=== PATIENT | female | born 1940 | race Caucasian/White ===

== ENCOUNTER → 2018-01-07 | Outpatient (CLI) | payer MEDICARE ==
[~2018-01-07] MED LIST: ALBU8.5H IH; ASPI-1471 PO; AUG500 PO; CALC400T65 PO; CHOL10005 PO; CIP500 PO; ESTR1 PO; FAM20 PO; FISH OIL1 CAP PO; FLINTSTONE PO; IBU600 PO; LOR5/325 PO; PHENA200 PO; SIMV10TA96 PO; SIMV5TAB56 PO; VALS1TAB64 PO; [UNRECOGNIZED DRUG - CODE] PO
--- NOTE | 2018-01-08 10:41 | RADIOLOGY IMAGING REPORT ---
FACILITY: [facility] PATIENT NAME: YONAS VAN : [id number] MR: [id number] V: [id number] EXAM DATE: [id number] ORDERING PHYSICIAN: SHAKIRA LEÓN TECHNOLOGIST: Josefina Rosado PROCEDURE:BILATERAL DIGITAL SCREENING MAMMOGRAM WITH CAD ASSISTED INTERPRETATION & 3D TOMOSYNTHESIS COMPARISON:Prior mammograms 12/17/16, 07/11/15, 07/08/14, 07/13/13, 07/08/12. INDICATIONS:screening FINDINGS: Moderately heterogeneous fibroglandular tissue is seen throughout the breasts. The parenchymal pattern has remained stable allowing for difference in mammographic technique & patient positioning. There is no evidence of malignant appearing mass, malignant appearing calcifications or other secondary sign of malignancy in either breast. DIAGNOSTIC CATEGORY 1--NEGATIVE. RECOMMENDATIONS: ROUTINE MAMMOGRAM AND CLINICAL EVALUATION. IMPRESSION: BIRADS 1: Negative No significant abnormality is seen. Dictated by: Anastasia Martines M.D. on 01/07/2018 at 11:13 Transcribed by: KIAH on 01/07/2018 at 11:42 Approved by: Anastasia Martines M.D. on 01/08/2018 at 10:40 [facility]
== END ==
LOC: MAMO 00:52
PROVIDERS: ATTEND Family Medicine
DX: Z12.31 Encounter for screening mammogram for malignant neoplasm of breast (principal)
CPT/HCPCS: 77063; 77067

== ENCOUNTER → 2018-10-29 | Outpatient (CLI) | payer MEDICARE ==
[~2018-10-29] MED LIST changes: +GADOBENATE 529MG/1ML 15ML VIAL IVP ONE
--- NOTE | 2018-10-29 18:03 | RADIOLOGY IMAGING REPORT ---
FACILITY: [facility] PATIENT NAME: Crystal Cavanaugh : 1940 MR: [id number] V: [id number] EXAM DATE: ORDERING PHYSICIAN: CYNTHIA LINARES TECHNOLOGIST: [place]: [facility] [place] Patient: Afshan, Crystal : 1940 Visit/Account:[id number] Date of Sevice: 10/29/2018 MR BRAIN/BRAIN STEM W/ & W/O CON Comparisons: None. Additional pertinent history: Blurry vision with recent onset. TECHNIQUE: Multiplanar, multisequence brain MRI was performed with and without gadolinium contrast. CONTRAST: 15 ml of MultiHance. FINDINGS: Sagittal midline structures and craniocervical junction: Negative. Midline shift: None. Ventricles: Negative. Brain parenchyma: Diffusion weighted imaging: Negative. Gradient sequence: Negative. T2 weighted FLAIR images: Scattered foci of abnormal increased T2 signal within the periventricular and subcortical white matter, nonspecific but likely representing small vessel ischemic change on a chronic basis. Extra-axial spaces: Mild cerebral atrophy. Dural venous sinuses and major arterial flow voids: Negative. Intracranial enhancement: Negative.. Mastoid air cells and paranasal sinuses: Moderate mucosal thickening involving the right maxillary si nus. Surrounding soft tissues and orbits: Negative. Impression: 1. Age related changes as above. 2. No evidence of acute intracranial pathology. 3. Underlying paranasal sinus disease. Report Dictated By: Cynthia Galan MD at 10/29/2018 5:55 PM Report E-Signed By: Cynthia Galan MD at 10/29/2018 5:58 PM WSN:[email or web address]
== END ==
LOC: MRI 16:17
PROVIDERS: ATTEND Family Medicine
DX: G31.89 Other specified degenerative diseases of nervous system (principal)
CPT/HCPCS: 70553; A9577

== ENCOUNTER → 2018-11-19 | Outpatient (CLI) | payer MEDICARE ==
[~2018-11-19] MED LIST changes: -GADOBENATE 529MG/1ML 15ML VIAL IVP ONE
== END ==
LOC: US 00:51
PROVIDERS: ATTEND Family Medicine
DX: I34.0 Nonrheumatic mitral (valve) insufficiency (principal)
CPT/HCPCS: C8929; Q9957

== ENCOUNTER → 2018-12-01 | Outpatient (CLI) | payer MEDICARE ==
--- NOTE | 2018-12-01 16:23 | RADIOLOGY IMAGING REPORT ---
FACILITY: [facility] PATIENT NAME: Crystal Afshan : 1940 MR: [id number] V: [id number] EXAM DATE: ORDERING PHYSICIAN: TABITHA PABON TECHNOLOGIST: Location: [facility] [place] Patient: Afshan, Crystal : 1940 Visit/Account:[id number] Date of Sevice: 12/01/2018 CAROTID HISTORY: Essential hypertension, PFO, TIA COMPARISON: None. FINDINGS: Grayscale, duplex and color Doppler interrogation of the extracranial carotid and vertebral arteries was performed bilateral. On the right, peak systolic velocities within the common and internal carotid arteries are 90 and 72 cm/sec respectively. There is a small hard plaque in the distal right common carotid artery. Antegr wade flow within the common, internal and external carotid arteries as well as vertebral artery. ICA/C CA ratio 0.8. On the left, peak systolic velocities within the common and internal carotid arteries are 97 and 80 c m/sec respectively. No significant plaque identified. Antegrade flow within the common, internal an d external carotid arteries as well as vertebral artery. ICA/CCA ratio 0.8. IMPRESSION: No hemodynamically significant lesions identified Velocity criteria are extrapolated from diameter data as defined by the Society of Radiologists in Ul trasound Consensus Conference Radiology 2003; 229;340-346 Report Dictated By: Anastasia Martines MD at 12/01/2018 4:19 PM Report E-Signed By: Anastasia Martines MD at 12/01/2018 4:20 PM WSN:[id number]
== END ==
LOC: US 14:40
PROVIDERS: ATTEND Internal Medicine Cardiovascular Disease
DX: G45.9 Transient cerebral ischemic attack, unspecified (principal); I10 Essential (primary) hypertension
CPT/HCPCS: 93880

== ENCOUNTER → 2019-01-29 | Outpatient (CLI) | payer MEDICARE ==
--- NOTE | 2019-02-01 09:34 | RADIOLOGY IMAGING REPORT ---
FACILITY: [facility] PATIENT NAME: YONAS VAN : [id number] MR: [id number] V: [id number] EXAM DATE: ORDERING PHYSICIAN: CYNTHIA LINARES TECHNOLOGIST: Josefina Rosado PROCEDURE: BILATERAL DIGITAL SCREENING MAMMOGRAM WITH CAD ASSISTED INTERPRETATION & 3D TOMOSYNTHESIS REASON FOR STUDY: Screening. FAMILY HISTORY OF BREAST CANCER: Sister. BREAST PROCEDURES/TREATMENTS: Benign lumpectomy in the Left breast in 1995. COMPARISON: 01/07/18, 12/17/16, 07/11/15, 07/08/14, 07/13/13, 07/08/12. VIEWS OBTAINED: 2D & 3D full field CC & MLO. BREAST DENSITY: The breasts are heterogeneously dense which can obscure small masses. MAMMOGRAM FINDINGS: The parenchymal pattern has remained stable allowing for difference in mammographic technique & patient positioning. IMPRESSION: BIRADS 1: Negative. DIAGNOSTIC CATEGORY 1--NEGATIVE. RECOMMENDATIONS: ROUTINE MAMMOGRAM AND CLINICAL EVALUATION. Dictated by: Anastasia Martines M.D. on 01/29/2019 at 10:46 Transcribed by: KIAH on 02/01/2019 at 8:22 Approved by: Anastasia Martines M.D. on 02/01/2019 at 9:33 [facility]
== END ==
LOC: MAMO 00:55
PROVIDERS: ATTEND Family Medicine
DX: Z12.31 Encounter for screening mammogram for malignant neoplasm of breast (principal)
CPT/HCPCS: 77063; 77067